=== PATIENT | female | born 1955 | race Caucasian/White ===

== ENCOUNTER → 2023-11-05 06:44 | Day surgery (SDC) | payer MEDICARE, OTHER, SELFPAY | LOC: GI 06:44 | PROVIDERS: ATTENDING PHYSICIAN Internal Medicine Gastroenterology | DX: Z12.11 Encounter for screening for malignant neoplasm of colon (principal); K57.30 Diverticulosis of large intestine without perforation or abscess without bleeding; K64.8 Other hemorrhoids; D12.0 Benign neoplasm of cecum; D12.2 Benign neoplasm of ascending colon; D12.3 Benign neoplasm of transverse colon; D12.4 Benign neoplasm of descending colon; Z86.010 Personal history of colon polyps | CPT/HCPCS: 45385; 88305 ==

== ENCOUNTER → 2023-12-31 13:08 | Outpatient (REF) | payer MEDICARE, OTHER, SELFPAY | LOC: HWRAD 13:08 | PROVIDERS: ATTENDING PHYSICIAN Internal Medicine Gastroenterology; FAMILY PHYSICIAN Internal Medicine | DX: K62.5 Hemorrhage of anus and rectum (principal); R19.4 Change in bowel habit | CPT/HCPCS: 74176 ==

== ENCOUNTER → 2024-01-15 11:12 | Outpatient (REF) | payer MEDICARE, OTHER, SELFPAY | LOC: RAD 11:12 | PROVIDERS: ATTENDING PHYSICIAN Podiatrist Foot & Ankle Surgery; FAMILY PHYSICIAN Internal Medicine | DX: G57.60 Lesion of plantar nerve, unspecified lower limb (principal); S99.921A Unspecified injury of right foot, initial encounter; M77.41 Metatarsalgia, right foot; M77.51 Other enthesopathy of right foot and ankle | CPT/HCPCS: 76882 ==

== ENCOUNTER 2024-05-06 06:32 | Day surgery (SDC) | payer MEDICARE, OTHER, SELFPAY | END 2024-05-06 12:47 | disposition home or self-care (01) | LOC: GI 06:32 | PROVIDERS: ATTENDING PHYSICIAN Internal Medicine Gastroenterology; FAMILY PHYSICIAN Internal Medicine | DX: Z09 Encounter for follow-up examination after completed treatment for conditions other than malignant neoplasm (principal); Z86.0101 Personal history of adenomatous and serrated colon polyps; K57.30 Diverticulosis of large intestine without perforation or abscess without bleeding; K64.8 Other hemorrhoids; D12.4 Benign neoplasm of descending colon; R63.4 Abnormal weight loss; R11.0 Nausea; R12 Heartburn; K31.7 Polyp of stomach and duodenum | CPT/HCPCS: 45385; 43239; 88305 ==

== ENCOUNTER → 2024-08-07 10:11 | Outpatient (REF) | payer MEDICARE, OTHER, SELFPAY | LOC: HWRAD 10:11 | PROVIDERS: ATTENDING PHYSICIAN Internal Medicine; FAMILY PHYSICIAN Internal Medicine; REFERRING PHYSICIAN Internal Medicine Gastroenterology | DX: R63.4 Abnormal weight loss (principal) | CPT/HCPCS: 71250; 74176 ==

== ENCOUNTER 2024-08-18 13:26 | Emergency (ER) | payer MEDICARE, OTHER, SELFPAY ==
[2024-08-18 13:29] VITALS: BP 132/76
[2024-08-18 13:57] LABS: % Eosinophils 0.3 % (0-6); % Immature Granulocytes 0.3 % (0-0.5); % Lymphocytes 17.3 % (20.5-51.1); % Monocytes 5.1 % (1.7-9.3); Absolute Basophils 0.1 10^3/uL (0-0.2); Absolute Lymphocytes 1.1 10^3/uL (1.2-3.4); Absolute Monocytes 0.3 10^3/uL (0.1-0.6); Absolute Neutrophils 4.8 10^3/uL (1.4-6.5); Hematocrit 45.5 % (37.0-47.0); Hemoglobin 15.4 g/dL (12.0-16.0); Mean Corp Hgb Conc. 33.8 g/dL (33.0-37.0); Mean Corpuscular Hgb 28.3 pg (27.0-31.0); Mean Corpuscular Volume 83.5 fL (81.0-99.0); Mean Platelet Volume 12.4 fL (7.4-10.4); Nucleated Red Blood Cells % 0 %; Platelet Count 228 10^3/uL (130-400); Red Blood Cell Count 5.45 10^6/uL (4.20-5.40); Red Cell Dist. Width 14.2 % (11.5-14.5); White Blood Cell Count 6.3 10^3/uL (4.8-10.8)
[2024-08-18 14:10] LABS: ALT (SGPT) 18 U/L (0-35); AST (SGOT) 22 U/L (14-36); Albumin 4.6 g/dl (3.5-5.0); Alkaline Phosphatase 57 U/L (38-126); Blood Urea Nitrogen 10 mg/dl (7-17); Calcium 9.9 mg/dl (8.4-10.2); Carbon Dioxide 29 mmol/L (22-30); Chloride 106 mmol/L (98-107); Glucose 112 mg/dl (70-99); Lipase 89 U/L (23-300); Potassium 4.2 mmol/L (3.5-5.1); Sodium 140 mmol/L (135-145); Total Bilirubin 0.7 mg/dl (0.2-1.3); Total Protein 7.1 g/dl (6.3-8.2); eGFR > 60.00
[2024-08-18 14:21] LABS: Troponin I < 0.012 ng/ml
[2024-08-18 17:09] VITALS: BP 143/73
[2024-08-18 17:51] VITALS: BP 143/77
[2024-08-18 18:00] VITALS: BP 124/74
--- NOTE | 2024-08-18 18:00 | ED.GENMED ---
History of Present Illness
General
Chief Complaint: Chest Pain
Source: patient
Exam Limitations: none
Time Seen by Provider: 08/18/24 17:53
Nursing documentation reviewed up to this point in time: agreed with
History of Present Illness
History of Present Illness:
69-year-old female with history of GERD, asthma, HTN, anxiety, Covid 04/2023 with loss of taste and never got it back, here for persistent nausea (no vomiting), poor appetite, can't eat, can't even force food, sleeping more. Wake at 7:30 a.m. today
with left chest pain lasting 1-2 minutes and felt SOB with it, none since. Admits 'I live alone and I have a hx of anxiety,' and 'I get neurotic and get myself all worked up.' Did take Xanax 0.25 mg. Had heartburn also and took Pepcid. Took her
Advair inhaler as she does daily. Admits to feeling stressed with all her symptoms, as well as lost 35 lbs since Apr 2023. Had all kinds of testing, endoscopy, colonoscopy Apr 2024 and due for repeat endoscopy Aug due to 'stomach polyps.'
Neg CT scans per patient, last one was 08/07.
Son at bedside voices concern about anxiety
Given Zofran IV by EMS which she states helped 'a little.'
States 'I just don't know what is going on, all my workups are negative.'
Past History
Past History
ED Past Medical History: Asthma, Psychiatric (anxiety), Other (hiatal hernia) and Other (ocular migraines, hasn't had one in years)
ED Past Surgical History: Appendectomy and Tonsilectomy
Social History
Tobacco: Former smoker (quit 28 yrs ago)
Alcohol: Occasional
Living: with family
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
Review of Systems
Review of Systems
Allergies reviewed?: Yes
All Other Systems: ROS reviewed and negative except as documented in HPI and ROS
Constitutional: Reports weight loss and fatigue
Cardiac: Reports chest pain (1-2 minute episode 7:30 a.m. none since)
ABD/GI: Reports nausea and anorexia; Denies vomiting or diarrhea
: Denies dysuria or difficulty voiding
Musculoskeletal: Reports no symptoms
Skin: Reports no symptoms
Neurological: Reports no symptoms
Phy Exam
Physical Exam
Physical Exam:
GENERAL: No acute distress. A&Ox3.
CONSTITUTIONAL: Afebrile.
EYES: clear, conjunctivae normal
ENMT: moist mucus membranes, Pharynx nl
RESPIRATORY: Regular respirations, nonlabored, lungs clear.
CARDIOVASCULAR: Regular rate and rhythm, no murmurs, no rubs.
GI: Soft, nontender, normal BS
MUSCULOSKELETAL: Moves with ease. Well perfused.
SKIN: Warm, dry, pink
PSYCH: Normal mood and affect. Well kept, interactive and appropriate
NEUROLOGIC: Awake, alert and oriented. No focal neurological deficits
Scores
Heart Score for Chest Pain Patients
STEMI patient?: Not applicable
Course
Orders/Labs/Results
Orders:
Orders
08/18/24 13:27
Electrocardiogram (*1) Urgent
Reason for Study: Chest Pain
08/18/24 13:28
EKG- Treatment ONCE
08/18/24 13:50
Complete Blood Count/With Diff Urgent
Comprehensive Metabolic Panel Urgent
Lipase Urgent
Troponin I Urgent
Abnormal Lab Results
08/18/24
13:50
RBC 5.45 H 10^6/uL
(4.20-5.40)
MPV 12.4 H fL
(7.4-10.4)
Absolute Lymphs (auto) 1.1 L 10^3/uL
(1.2-3.4)
Neutrophils % 76.0 H %
(42.2-75.2)
Lymphocytes % 17.3 L %
(20.5-51.1)
Glucose 112 H mg/dl
(70-99)
08/18/24 13:50
08/18/24 13:50
Vital Signs
Initial and Last Documented VS:
Initial Vital Signs
Temp Pulse Resp BP Pulse Ox
98 F 71 16 132/76 98
08/18/24 13:29 08/18/24 13:29 08/18/24 13:29 08/18/24 13:29 08/18/24 13:29
Last Documented Vital Signs
Temp Pulse Resp BP Pulse Ox
98.3 F 80 16 124/74 100
08/18/24 17:09 08/18/24 19:00 08/18/24 19:00 08/18/24 18:00 08/18/24 18:15
MDM/Problems Addressed
MDM/Problems Addressed:
69-year-old female with history of GERD, asthma, HTN, anxiety, Covid 04/2023 with loss of taste and never got it back, here for persistent nausea (no vomiting), poor appetite, can't eat, can't even force food, sleeping more. Wake at 7:30 a.m. today
with left chest pain lasting 1-2 minutes and felt SOB with it, none since. Admits 'I live alone and I have a hx of anxiety,' and 'I get neurotic and get myself all worked up.' Did take Xanax 0.25 mg. Had heartburn also and took Pepcid. Took her
Advair inhaler as she does daily. Admits to feeling stressed with all her symptoms, as well as lost 35 lbs since Apr 2023. Had all kinds of testing, endoscopy, colonoscopy Apr 2024 and due for repeat endoscopy Aug due to 'stomach polyps.'
Neg CT scans per patient, last one was 08/07.
Son at bedside voices concern about anxiety
Given Zofran IV by EMS which she states helped 'a little.'
States 'I just don't know what is going on, all my workups are negative.'
Reviewed CT report of 08/07/24:
she does have emphysema, several pulmonary nodules, largest 7.5 mm BELLA
Copy of report given to patient, son at bedside, all questions answered. Recommend f/u CT in 6-12mos due to risk.
6:00 PM:
EKG sinus rhythm with PACs
CBC, CMP normal
Troponin normal
Lipase normal
Nothing worrisome in patient's workup here today
Rx for Zofran sent to her pharmacy
Recommend speaking to PCP about medication to increase appetite
*EKG
EKG Intrepretation Date: 08/18/24
Interpretation: abnormal
Rate: normal
Rhythm: sinus and PAC's (With aberrant conduction)
Pav[place]: normal axis
Interval: normal interval
QRS Pattern: normal QRS
Ischemia: no ischemia
*Critical Care Note
Total Time (30-74mins, 75-104mins- exclusive of procedures): Not Applicable
ED Attending Note
-
Portions of this chart may have been created with voice recognition software.� Occasional wrong word or��sound alike� substitutions may have occurred due to the inherent limitations of voice recognition software.
Discharge Plan
Departure
Patient Disposition: Home (Routine Discharge)
Date of Disposition: 08/18/24
Time of Disposition: 18:44
Patient with high blood pressure during this ER visit?: No
Condition: Fair
Discharge Problem:
Poor appetite, Nausea alone, Anxiety about health
Instructions: Chest Pain That Is Not Caused by the Heart (DC), Coping with worry and stress
Prescriptions:
New
ondansetron 4 mg tablet,disintegrating
4 mg PO Q8H PRN (Reason: nausea) 5 Days Qty: 14 0RF
No Action
fluticasone propion-salmeterol [Advair Diskus] 1 EACH blister with device
1 ea IH BID
levothyroxine [Levoxyl] 75 MCG tablet
75 mcg PO DAILY
alprazolam 0.25 MG tablet
0.25 mg PO BID
desloratadine [Clarinex] 5 MG tablet
5 mg PO DAILY
lansoprazole 30 MG capsule,delayed release(DR/EC)
30 mg PO BID
prednisone 50 MG tablet
25 mg PO DAILY
vitamin E 400 UNIT capsule
400 unit PO DAILY
cholecalciferol (vitamin D3) 2,000 UNIT tablet
2,000 unit PO DAILY
calcium-vitamin D3-vitamin K 1 EACH tablet
1 ea PO DAILY
Nasonex
50 mcg inhalation DAILY
Referrals:
MD Dedra [Other] - Call in 1-3 days for appt
Jessica Castillo MD [Active] - Next open appointment
Activity Restrictions/Additional Instructions:
As we discussed, nothing worrisome in your workup here today.
You have several nodules in your lung on your CAT scan report, you have emphysema which can make you short of breath, continue your inhalers as prescribed.
Follow-up the lung nodules as recommended as we discussed.
There are medications that can increase your appetite, please discuss these with your doctor
I sent a prescription for Zofran for nausea to your pharmacy to use as needed
Interventions
Interventions:
*Risk Screen - Suicide Last Done: 08/18/24 13:29
*General Assessment Last Done: 08/18/24 18:58
*Neglect/Abuse Screening Last Done: 08/18/24 13:29
*ED- Fall Risk Assessment Last Done: 08/18/24 18:58
*ED COVID-19 Vaccine History Last Done: 08/18/24 18:58
*Nursing Disposition Last Done: 08/18/24 18:58
ED- Cardiac Assessment Last Done: 08/18/24 18:57
Discharge Date and Time
Discharge Date/Time: 08/18/24 19:13
Print Language: BELGIAN
== END 2024-08-18 19:13 | disposition home or self-care (01) ==
LOC: EMR 13:26
PROVIDERS: Emergency Medicine; EMERGENCY PHYSICIAN Student in an Organized Health Care Education/Training Program; FAMILY PHYSICIAN Internal Medicine
DX: F41.9 Anxiety disorder, unspecified (principal); R63.0 Anorexia; R11.0 Nausea; I10 Essential (primary) hypertension; Z87.891 Personal history of nicotine dependence
CPT/HCPCS: 99284; 80053; 83690; 84484; 85025; 93005

== ENCOUNTER → 2024-12-22 10:13 | Outpatient (REF) | payer MEDICARE, OTHER, SELFPAY | LOC: HWRAD 10:13 | PROVIDERS: ATTENDING PHYSICIAN Internal Medicine | DX: R10.84 Generalized abdominal pain (principal); R63.4 Abnormal weight loss | CPT/HCPCS: 74176 ==